=== PATIENT | male | born 1990 | race Caucasian/White ===

== ENCOUNTER 2018-01-30 15:28 | Emergency (ER) | payer SELFPAY, OTHER ==
[2018-01-30] MEDS: DEXAMETHASONE 10 MG/ML 1 ML INJ PO (18:57)
[2018-01-30] MEDS: NAPROXEN 500 MG TAB PO (18:57)
== END 2018-01-30 19:04 | disposition home or self-care (01) ==
LOC: FTE 15:28
DX: M54.42 Lumbago with sciatica, left side (principal); F17.210 Nicotine dependence, cigarettes, uncomplicated
CPT/HCPCS: 99283